=== PATIENT | female | born 2000 | race Caucasian/White ===

== ENCOUNTER 2020-09-05 13:51 | Emergency (ER) | payer MEDICAID, SELFPAY ==
[2020-09-05 13:52] VITALS: BP 126/88; PULSE 133; RESP 16; TEMP 36.4; O2SAT 98; BMI 48.0
--- NOTE | 2020-09-05 14:09 | ED.DCSUM_ITS ---
History of Present Illness Informant: Patient Onset: Today Context: Sudden Onset Timing: Lasts - 1 minute Quality: seizure Location: staring Current Severity: Mild Maximum Severity: Severe Worsened by: nothing Relieved by: nothing Associated Symptoms: denies Narrative: 20-year-old female history of epilepsy on Trileptal presents after seizure. She has not taken her medications in 3 days because she missed her most recent appointment. She had a staring off episode which is consistent with her previous seizures. She did not fall or suffer injury. She has no other complaints. No fevers no upper respiratory symptoms no vomiting or diarrhea. She does admit to drinking heavily today because she got into an argument with her boyfriend as well. She is not suicidal or homicidal and denies drug use Prior similar symptoms: Yes Recent Illness/Hospitalization: No <Marquez Horn - Last Filed: 09/05/20 15:09> <Wilbur Denis - Last Filed: 09/05/20 15:38> Chief Complaint: Seizure Past Medical History Prior records reviewed: Yes Past Medical History: - - Epilepsy Surgical History: noncontributory Smoking Status: Current every day smoker Alcohol: Occasional <Marquez Horn - Last Filed: 09/05/20 15:09> <Wilbur Denis - Last Filed: 09/05/20 15:38> Primary Care Physician: Jitendra Mojica MD [Primary Care Provider] - Review of Systems All systems negative except as indicated General: Denies: Chills, Fever, Sweats Eyes: Denies: Visual changes - bilaterally, Diplopia ENT: Denies: Rhinorrhea, Sore throat Cardiovascular: Denies: Chest pain, Palpitations Respiratory: Denies: Dyspnea, Cough, Dyspnea on exertion Gastrointestinal: Denies: Abdominal pain, Nausea, Vomiting, Diarrhea, Melena, Hematochezia Genitourinary: Denies: Dysuria, Hematuria, Frequency Musculoskeletal: Denies: Back pain, Extremity Pain Skin: Denies: Rash, Wounds Neurological: Denies: Headache, Weakness, Numbness <Marquez Horn - Last Filed: 09/05/20 15:09> Physical Exam Vital Signs/Narrative: Vital Signs Temp Pulse Resp BP Pulse Ox 09/05/20 13:52 97.6 F L 133 H 16 126/88 H 98 Inital Vital Signs reviewed: Yes General: Well nourished, Well developed, No Acute Distress Head: Normocephalic, Atraumatic Eyes: Perrl, EOMI ENT: Moist mucous membranes, No rhinorrhea Neck: Supple, Nontender Cardiovascular: Regular rate, Regular rhythm, No murmurs Respiratory: No distress, CTA bilaterally, Chest nontender Abdomen: Soft, Nontender, Nondistended, Normal bowel sounds Back: Nontender, Normal Inspection Extremities: Nontender, No edema Skin: Normal color, No rash Neurological: Alert, Oriented x3, Cranial nerves II-XII grossly intact, Normal Strength, Normal Sensation Psychological: Normal affect, Normal Mood <Marquez Horn - Last Filed: 09/05/20 15:09> Vital Signs/Narrative: Vital Signs Temp Pulse Resp BP Pulse Ox 09/05/20 13:52 97.6 F L 133 H 16 126/88 H 98 <Wilbur Denis - Last Filed: 09/05/20 15:38> Diagnostic/Tx/Re-eval Laboratory Results 09/05/20 09/05/20 14:33 14:33 Sodium 141 Potassium 3.5 Chloride 109 H Carbon Dioxide 25.0 Anion Gap 7 BUN 9 Creatinine 0.80 Estim Creat Clear Calc 96.06 Est GFR (MDRD) Af Amer 115 Est GFR (MDRD) Non-Af 95 BUN/Creatinine Ratio 11.2 Glucose 166 H Calcium 9.0 Ethyl Alcohol < 3.0 - Medical Decision Making 20-year-old female presented after seizure. She has been noncompliant with her Trileptal. Laboratory work-up was unremarkable. Patient resting comfortably without seizures. She will be discharged with her father. She is not out of her medication. She states that she has about 5 days left worth of pills and she has an appointment with her neurologist in 2 days for refill. <Marquez Horn - Last Filed: 09/05/20 15:09> - Medical Decision Making Independent history and physical was performed by me. Patient is not a good informant. Patient has given different versions with regards to reason she presented. She denies alcohol use with me for the past week. She informed the nurse that she was drinking today. She informed physician blood donor unit assistant Marquez Koroma that she has not had a drink. Patient admits she has not been taking her anticonvulsant medication. She does have an appointment to see her neurologist in 2 days. She states she has for 5 days of medication remaining. She presently denies headache. She denies incontinence of urine or stool. She denies cardiac, respiratory or GI symptoms. Patient appears in no distress. H EENT exam is unremarkable. Neck is supple. Lungs are clear to auscultation. Heart is regular. Abdomen is soft nontender. Neuro exam is nonfocal. She has no clonus or Babinski sign. Cerebellar testing is normal. Work-up is unremarkable. Patient was given dose of anticonvulsant in department and instructed to take her medicine. <Wilbur Denis - Last Filed: 09/05/20 15:38> ED Disposition <Marquez Horn - Last Filed: 09/05/20 15:09> <Wilbur Denis - Last Filed: 09/05/20 15:38> - Plan for ED Patient: Disposition: Home or Assisted Living Diagnosis: Seizure, mrdd Instructions: ED Seizure Recurrent Adult Referrals: Jitendra Mojica MD [Primary Care Provider] - Additional Instructions: You were supposed to be taking 450 mg by mouth 2 times daily. That is 1-1/2 pills twice daily
[2020-09-05 14:54] LABS: Anion Gap 7 (5-15); BUN 9 mg/dL (7-18); BUN/Creat Ratio 11.2 RATIO (10-20); Chloride 109 mmol/L (98-107); EST Glomerular Filtration Rate 95 mL/min (>60); Est Glom Filt Rate - Afr Amer 115 mL/min (>60); Estimated Creatinine Clearance 96.06 ml/min; Glucose 166 mg/dL (74-106); Potassium 3.5 mmol/L (3.5-5.1); Sodium Level 141 mmol/L (136-145)
[2020-09-05 14:59] LABS: Alcohol, Blood (Medical)-Serum < 3.0 mg/dL
== END 2020-09-05 15:44 | disposition home or self-care (01) ==
PROVIDERS: Emergency Provider Physician Assistant Medical; PCP Pediatrics
DX: G40.909 Epilepsy, unspecified, not intractable, without status epilepticus (principal); F17.200 Nicotine dependence, unspecified, uncomplicated; Z91.14 Patient's other noncompliance with medication regimen
CPT/HCPCS: 80048; 80320; 99282; G0480